=== PATIENT | male | born 1985 | race Caucasian/White ===

== ENCOUNTER 2016-09-28 22:06 | Emergency (ER) | payer OTHER | END 2016-09-29 00:49 | disposition home or self-care (01) | LOC: ER 22:06 | PROC: 2W3SXYZ Immobilization of Right Foot using Other Device (ICD-10-PCS; principal; 2016-09-28) | DX: S82.64XA Nondisplaced fracture of lateral malleolus of right fibula, initial encounter for closed fracture (principal); Y93.6A Activity, physical games generally associated with school recess, summer camp and children; X50.1XXA Overexertion from prolonged static or awkward postures, initial encounter | CPT/HCPCS: 73610-RT; 99283; A9270-GY ==